=== PATIENT | male | born 1985 | race Caucasian/White ===

== ENCOUNTER 2020-05-08 20:11 | Emergency (ER) | payer BC ==
[2020-05-08] MEDS ORDERED: Ketorolac 60 MG/2 ML SDV IM ONE (20:49)
--- NOTE | 2020-05-08 21:02 | EDM.PDOC ---
ED HPI GENERAL MEDICAL PROBLEM - General Chief Complaint: Chest Pain Stated Complaint: shoulder pain Time Seen by Provider: 05/08/20 20:35 Source of Information: Reports: Patient History Limitations: Reports: No Limitations - History of Present Illness INITIAL COMMENTS - FREE TEXT/NARRATIVE: Patient is a 34-year-old male presenting to the emergency department with complaints of pain to his left shoulder. He states about 3 days ago he was doing stretching exercises and he felt a sharp pain in his left shoulder. At the time the injury occurred, he was seen at the [facility]. X-rays were done and found to be normal. He states since that time the pain has been getting progressively worse. He feels a grinding sensation when he moves his shoulder and pain radiates down into his bicep, upper back, and left anterior chest. States he has taken ibuprofen for pain, however has not taken any since last night. He denies any previous injuries to this shoulder. Left Chest Pain Score (Numeric/FACES): 7 - Related Data Allergies Allergy/AdvReac Type Severity Reaction Status Date / Time No Known Allergies Allergy Verified 05/08/20 20:18 Home Meds: Home Meds . [No Known Home Meds] 05/08/20 [History] Past Medical History Genitourinary History: Reports: Renal Calculus - Past Surgical History Male Surgical History: Reports: Lithotripsy ([facility]) Social & Family History - Tobacco Use Smoking Status *Q: Never Smoker - Recreational Drug Use Recreational Drug Use: No Review of Systems - Review of Systems Review Of Systems: See Below Constitutional: Reports: No Symptoms Ears: Reports: No Symptoms Nose: Reports: No Symptoms Mouth/Throat: Reports: No Symptoms Respiratory: Reports: No Symptoms. Denies: Shortness of Breath, Pleuritic Chest Pain, Cough Cardiovascular: Reports: No Symptoms. Denies: Lightheadedness, Palpitations, Syncope GI/Abdominal: Reports: No Symptoms Genitourinary: Reports: No Symptoms Musculoskeletal: Reports: Other (left shoulder pain) Neurological: Reports: No Symptoms Psychiatric: Reports: No Symptoms ED EXAM, GENERAL - Physical Exam Exam: See Below Exam Limited By: No Limitations General Appearance: Alert, WD/WN, No Apparent Distress Respiratory/Chest: No Respiratory Distress, Lungs Clear, Normal Breath Sounds, No Accessory Muscle Use, Chest Non-Tender Cardiovascular: Normal Peripheral Pulses, Regular Rate, Rhythm, No Edema, No Gallop, No JVD, No Murmur, No Rub Extremities: Normal Inspection, Normal Range of Motion, No Pedal Edema, Normal Capillary Refill, Other (tenderness to palpation over the left trapezius muscle, bicep muscle, and within the anterior and posterior fossa. Pt has full ROM, but describes a grinding/popping sensation when he moves it.) Neurological: Alert, Oriented, CN II-XII Intact, Normal Cognition, Normal Gait, Normal Reflexes, No Motor/Sensory Deficits Psychiatric: Normal Affect, Normal Mood Course - Vital Signs Last Recorded V/S: Last Vital Signs Temp 97.8 F 05/08/20 20:16 Pulse 78 05/08/20 20:16 Resp 17 05/08/20 20:16 BP 169/91 H 05/08/20 20:16 Pulse Ox 97 05/08/20 20:16 - Orders/Labs/Meds Orders: Active Orders 24 hr Category Date Time Status EKG 12 Lead [EKG Documentation Completion] [RC] ROUTINE Care 05/08/20 20:20 Active Meds: Medications Discontinued Medications Generic Name Dose Route Start Last Admin Trade Name Jayce PRN Reason Stop Dose Admin Ketorolac Tromethamine 60 mg 05/08/20 20:49 Toradol IM 05/08/20 20:50 ONETIME ONE - Re-Assessments/Exams Free Text/Narrative Re-Assessment/Exam: Patient is a 34-year-old male presenting to the emergency department with complaints of pain to his left shoulder. Pain originated 3 days ago when he felt a sharp pain while doing stretching exercises. Patient states he had his arm extended out over his head and reaching backwards at the time. Since that time he has had progressively worsening pain and describes muscle spasms to the area. He is already had a x-ray done at [facility] and states it was found to be normal. Discussed that he may end up needing an MRI, however the study and force is not available through the emergency department. We will give him an injection of Toradol for pain. Discussed the option of an arm sling, however he does not feel that this would be beneficial. I did discuss that he should take ibuprofen routinely every 6 hours for the next few days. He may apply heat over the area as needed. I will refer him to orthopedist, Dr. Beard should his symptoms not improve. He is in agreement with this plan. Discharge instructions as documented. Departure - Departure Time of Disposition: 21:07 Disposition: Home, Self-Care 01 Condition: Good Clinical Impression: Shoulder pain, left Qualifiers: Chronicity: acute Qualified Code(s): M25.512 - Pain in left shoulder - Discharge Information *PRESCRIPTION DRUG MONITORING PROGRAM REVIEWED*: No *COPY OF PRESCRIPTION DRUG MONITORING REPORT IN PATIENT DONNA: No Instructions: Shoulder Pain, [id number], Musculoskeletal Pain Referrals: PCP,None [Primary Care Provider] - Additional Instructions: You were seen in the emergency department today for 3 days of pain to your left shoulder which occurred after you were performing stretching exercises. Per your report, x-rays were done at [facility] and found to be normal. As we discussed, if pain does not improve, an MRI may be needed. While in the ER, you received an injection of Toradol for pain. Recommend that starting tomorrow you start taking ibuprofen 600 mg every 6 hours routinely. You may ice over your left shoulder intermittently throughout the day. Recommend that you call to schedule an appointment with orthopedist, Dr. Beard. The number to schedule with him is listed below. Return to the ER as needed. Sepsis Event Note (ED) - Evaluation Sepsis Screening Result: No Definite Risk - Focused Exam Vital Signs: Vital Signs Temp Pulse Resp BP Pulse Ox 05/08/20 20:16 97.8 F 78 17 169/91 H 97 - My Orders Last 24 Hours: My Active Orders 05/08/20 20:20 EKG 12 Lead [EKG Documentation Completion] [RC] ROUTINE - Assessment/Plan Last 24 Hours: My Active Orders 05/08/20 20:20 EKG 12 Lead [EKG Documentation Completion] [RC] ROUTINE
== END 2020-05-08 21:18 | disposition home or self-care (01) ==
LOC: JD.ED 20:11
DX: M25.512 Pain in left shoulder (principal)
CPT/HCPCS: 93005; 96372; 99284; J1885; 99283